=== PATIENT | female | born 1970 | race Caucasian/White ===

== ENCOUNTER → 2017-01-12 | Outpatient (CLI) | payer OTHER ==
--- NOTE | 2017-01-13 07:45 | MM ---
Reason for exam: screening (asymptomatic). Last mammogram was performed 1 year and 1 month ago. History: Patient is postmenopausal. Took hormonal contraceptives for 4 years 6 months. Took estrogen for 2 years beginning at age 29. Physical Findings: A clinical breast exam by your physician is recommended on an annual basis and results should be correlated with mammographic findings. MG Screening Mammo w CAD Bilateral CC and MLO view(s) were taken. Prior study comparison: December 28, 2015, bilateral MG 3d screening mammo w/cad. December 26, 2014, bilateral MG screening mammo w CAD. The breast tissue is almost entirely fat. Finding: There is a 7.7 mm oval mass in the axilla position consistent with a lymph node. ASSESSMENT: Benign, BI-RAD 2 RECOMMENDATION: Routine screening mammogram of both breasts in 1 year.
== END | disposition home or self-care (01) ==
LOC: RADMAMWWP 06:51
PROVIDERS: ATTEND Internal Medicine
DX: Z12.31 Encounter for screening mammogram for malignant neoplasm of breast (principal)

== ENCOUNTER → 2017-07-24 | Outpatient (CLI) | payer OTHER ==
--- NOTE | 2017-07-24 23:46 | MR ---
EXAMINATION TYPE: MR lumbar spine wo con DATE OF EXAM: 07/24/2017 COMPARISON: 05/30/2014 HISTORY: Back pain TECHNIQUE: Multiplanar, multisequence images of the lumbar spine were acquired. The lumbar vertebra have normal alignment. Posterior elements are intact. Disc spaces are normal. The neural foramina are widely patent. Lumbar nerve roots appear normal. There is no spinal stenosis. I see no bony destructive process. There is no paraspinal mass. Sacroiliac joints appear normal. There is a small posterior disc bulge and herniation at L1-2 without compromise of the spinal canal. IMPRESSION: Small posterior disc herniation at L1-2 of doubtful significance. Otherwise negative exam.
== END | disposition home or self-care (01) ==
LOC: RADMRIMAIN 20:19
PROVIDERS: ATTEND Internal Medicine
DX: M51.26 Other intervertebral disc displacement, lumbar region (principal)
CPT/HCPCS: 72148

== ENCOUNTER → 2018-04-17 | Outpatient (CLI) | payer BC, OTHER ==
--- NOTE | 2018-04-17 23:16 | CT ---
EXAMINATION TYPE: CT wrist LT wo con DATE OF EXAM: 04/17/2018 COMPARISON: None HISTORY: Left wrist pain after fall x2 weeks ago. CT DLP: 238 mGycm Automated exposure control for dose reduction was used. Helical imaging through the left wrist, sagit dg coronal reconstructions, three-dimensional reconstructions on an alternate workstation FINDINGS: There is a small ossific fragment at the volar aspect of the wrist measuring 3 mm in the soft tissues . No evident dislocation. Soft tissue swelling is suspected. Alignment is normal. Bone mineralization within normal limits. Geode present within the hamate. IMPRESSION: SMALL CHIP FRACTURE SUSPECTED THE VOLAR ASPECT OF THE WRIST, MRI MAY BE OF BENEFIT
== END ==
LOC: RADCTMAIN 17:56
DX: S62.115A Nondisplaced fracture of triquetrum [cuneiform] bone, left wrist, initial encounter for closed fracture (principal); G56.02 Carpal tunnel syndrome, left upper limb; G56.22 Lesion of ulnar nerve, left upper limb

== ENCOUNTER 2018-11-04 12:59 | Inpatient (IN) | payer BC, OTHER ==
[2018-11-04] MEDS ORDERED: PANTOPRAZOLE 40 MG/10 ML VIAL IVP STA (13:11)
[2018-11-04] MEDS ORDERED: SODIUM CHLORIDE 0.9% 1,000 ML IV STA (13:11)
[2018-11-04] MEDS ORDERED: ONDANSETRON 4 MG/2 ML VIAL IVP STA (13:11)
--- NOTE | 2018-11-04 13:19 | ED ---
GI Bleed HPI - General Chief complaint: GI Bleed Stated complaint: GI bleed Time Seen by Provider: 11/04/18 13:11 Source: patient, RN notes reviewed, old records reviewed Mode of arrival: ambulatory Limitations: no limitations - History of Present Illness Initial comments: This is a 48-year-old female the ER for evaluation of blood in her stool. Gross blood. No blood thinners currently. She also is complaining of abdominal pain. MD complaint: blood on toilet paper, blood streaked stool, gross hematochezia -: hour(s) Radiation: none Severity scale (1-10): 4 Quality: cramping, dull, constant Consistency: intermittent Improves with: none Worsens with: none Associated Symptoms: weakness Treatments Prior to Arrival: none - Related Data Home Medications Medication Instructions Recorded Confirmed Aspirin EC [Ecotrin] 325 mg PO DAILY 02/03/15 11/04/18 Atorvastatin [Lipitor] 40 mg PO DAILY 02/03/15 11/04/18 glipiZIDE [Glucotrol] 10 mg PO AC-BID 02/03/15 11/04/18 metFORMIN HCL [Glucophage] 1,000 mg PO AC-BID 02/03/15 11/04/18 Diltiazem Cd [Cardizem CD] 240 mg PO DAILY 10/22/15 11/04/18 Pantoprazole [Protonix] 40 mg PO DAILY 10/22/15 11/04/18 Cyclobenzaprine [Flexeril] 10 mg PO Q8H PRN 05/13/17 11/04/18 HYDROcodone/APAP 5-325MG [[place] 1 tab PO Q12H PRN 05/13/17 11/04/18 5-325] Lisinopril [Prinivil] 20 mg PO BID 05/13/17 11/04/18 Naproxen [Naprosyn] 500 mg PO BID 05/13/17 11/04/18 hydrALAZINE HCL 25 mg PO BID 05/13/17 11/04/18 Allergies Allergy/AdvReac Type Severity Reaction Status Date / Time morphine Allergy Rash/Hives Verified 11/04/18 16:43 Review of Systems ROS Statement: Those systems with pertinent positive or pertinent negative responses have been documented in the HPI. ROS Other: All systems not noted in ROS Statement are negative. Past Medical History Past Medical History: Chest Pain / Angina, Diabetes Mellitus, GERD/Reflux, Hyperlipidemia, Hypertension, Osteoarthritis (OA) Additional Past Medical History / Comment(s): NIDDM, bronchitis, bilateral ankle fxs, R wrist fx, arthiritis in feet, knees and hands. History of Any Multi-Drug Resistant Organisms: None Reported Date of last positivie culture/infection: 2013 MDRO Source:: R leg Past Surgical History: Appendectomy, Heart Catheterization, Hysterectomy, Orthopedic Surgery Additional Past Surgical History / Comment(s): 2009? cardiac cath-clear, L shoulder acromioplasty excision distal end of clavicle, 3 C-Sections, R knee arthroscopy, bilateral salpingectomy, bilateral oophorectomy, benign mass removed from R foot, R ankle surgery to clean out arthiritis. EGD Past Anesthesia/Blood Transfusion Reactions: No Reported Reaction Past Psychological History: No Psychological Hx Reported Smoking Status: Current every day smoker Past Alcohol Use History: None Reported Past Drug Use History: None Reported - Past Family History Father Family Medical History: Coronary Artery Disease (CAD), Diabetes Mellitus, Hyperlipidemia, Myocardial Infarction ([place]) Additional Family Medical History / Comment(s): Father has had quad and triple coronary bypasses. He is about 66 yrs old. Mother Family Medical History: Hypertension Additional Family Medical History / Comment(s): Mother recently had bowel rese ction surgery due to benign polyps/diverticulitis. She is about 66 yrs old. General Exam Limitations: no limitations General appearance: alert, in no apparent distress Head exam: Present: atraumatic, normocephalic, normal inspection Eye exam: Present: normal appearance, PERRL, EOMI. Absent: scleral icterus, conjunctival injection, periorbital swelling ENT exam: Present: normal exam, mucous membranes moist Neck exam: Present: normal inspection. Absent: tenderness, meningismus, lymphadenopathy Respiratory exam: Present: normal lung sounds bilaterally. Absent: respiratory distress, wheezes, rales, rhonchi, stridor Cardiovascular Exam: Present: normal rhythm, tachycardia, normal heart sounds. Absent: systolic murmur, diastolic murmur, rubs, gallop, clicks GI/Abdominal exam: Present: soft, normal bowel sounds. Absent: distended, tenderness, guarding, rebound, rigid Extremities exam: Present: normal inspection, full ROM, normal capillary refill. Absent: tenderness, pedal edema, joint swelling, calf tenderness Back exam: Present: normal inspection Neurological exam: Present: alert, oriented X3, CN II-XII intact Psychiatric exam: Present: normal affect, normal mood Skin exam: Present: warm, dry, intact, normal color. Absent: rash Course Vital Signs 11/04/18 11/04/18 11/04/18 13:07 15:32 16:38 Temperature 98.9 F 97.2 F L 97.9 F Pulse Rate 112 H 109 H 86 Respiratory 18 16 16 Rate Blood Pressure 181/81 181/92 166/79 O2 Sat by Pulse 97 97 98 Oximetry - Reevaluation(s) Reevaluation #1: 11/04/18 14:22 medical record is reviewed Medical Decision Making - Medical Decision Making Current female the ER with history of bleed. Patient is colitis likely colitis causing GI bleed. Patient will be admitted for monitoring of hemoglobin - Lab Data Result diagrams: 11/06/18 07:24 11/06/18 07:24 Lab Results 11/04/18 11/04/18 11/04/18 Range/Units 13:42 13:42 13:42 WBC 18.3 H (3.8-10.6) k/uL RBC 4.77 (3.80-5.40) m/uL Hgb 13.3 (11.4-16.0) gm/dL Hct 41.0 (34.0-46.0) % MCV 86.0 (80.0-100.0) fL MCH 27.8 (25.0-35.0) pg MCHC 32.3 (31.0-37.0) g/dL RDW 14.5 (11.5-15.5) % Plt Count 408 (150-450) k/uL Neutrophils % 82 % Lymphocytes % 10 % Monocytes % 5 % Eosinophils % 1 % Basophils % 0 % Neutrophils # 15.1 H (1.3-7.7) k/uL Lymphocytes # 1.8 (1.0-4.8) k/uL Monocytes # 1.0 (0-1.0) k/uL Eosinophils # 0.2 (0-0.7) k/uL Basophils # 0.0 (0-0.2) k/uL PT 9.8 (9.0-12.0) sec INR 0.9 (<1.2) APTT 23.6 (22.0-30.0) sec Sodium 139 (137-145) mmol/L Potassium 4.4 (3.5-5.1) mmol/L Chloride 105 (98-107) mmol/L Carbon Dioxide 23 (22-30) mmol/L Anion Gap 11 mmol/L BUN 15 (7-17) mg/dL Creatinine 0.62 (0.52-1.04) mg/dL Est GFR (CKD-EPI)AfAm >90 (>60 ml/min/1.73 sqM) Est GFR (CKD-EPI)NonAf >90 (>60 ml/min/1.73 sqM) Glucose 151 H (74-99) mg/dL POC Glucose (mg/dL) (75-99) mg/dL POC Glu Air Drier ID Estimated Ave Glu mg/dL Hemoglobin A1c (4.0-6.0) % Calcium 9.6 (8.4-10.2) mg/dL Magnesium 1.7 (1.6-2.3) mg/dL Total Bilirubin 0.6 (0.2-1.3) mg/dL AST 29 (14-36) U/L ALT 39 (9-52) U/L Alkaline Phosphatase 99 (38-126) U/L Troponin I (0.000-0.034) ng/mL Total Protein 6.9 (6.3-8.2) g/dL Albumin 4.3 (3.5-5.0) g/dL Lipase 17 L (23-300) U/L Stool Occult Blood (Negative) 11/04/18 11/04/18 11/04/18 Range/Units 13:42 17:36 20:58 WBC (3.8-10.6) k/uL RBC (3.80-5.40) m/uL Hgb (11.4-16.0) gm/dL Hct (34.0-46.0) % MCV (80.0-100.0) fL MCH (25.0-35.0) pg MCHC (31.0-37.0) g/dL RDW (11.5-15.5) % Plt Count (150-450) k/uL Neutrophils % % Lymphocytes % % Monocytes % % Eosinophils % % Basophils % % Neutrophils # (1.3-7.7) k/uL Lymphocytes # (1.0-4.8) k/uL Monocytes # (0-1.0) k/uL Eosinophils # (0-0.7) k/uL Basophils # (0-0.2) k/uL PT (9.0-12.0) sec INR (<1.2) APTT (22.0-30.0) sec Sodium (137-145) mmol/L Potassium (3.5-5.1) mmol/L Chloride (98-107) mmol/L Carbon Dioxide (22-30) mmol/L Anion Gap mmol/L BUN (7-17) mg/dL Creatinine (0.52-1.04) mg/dL Est GFR (CKD-EPI)AfAm (>60 ml/min/1.73 sqM) Est GFR (CKD-EPI)NonAf (>60 ml/min/1.73 sqM) Glucose (74-99) mg/dL POC Glucose (mg/dL) 142 H 145 H (75-99) mg/dL POC Glu Air Drier ID Ro, Rosalinda Connolly Estimated [address] Glu mg/dL Hemoglobin A1c (4.0-6.0) % Calcium (8.4-10.2) mg/dL Magnesium (1.6-2.3) mg/dL Total Bilirubin (0.2-1.3) mg/dL AST (14-36) U/L ALT (9-52) U/L Alkaline Phosphatase (38-126) U/L Troponin I <0.012 (0.000-0.034) ng/mL Total Protein (6.3-8.2) g/dL Albumin (3.5-5.0) g/dL Lipase (23-300) U/L Stool Occult Blood (Negative) 11/05/18 11/05/18 11/05/18 Range/Units 06:30 07:05 07:15 WBC 11.6 H (3.8-10.6) k/uL RBC 4.43 (3.80-5.40) m/uL Hgb 12.4 (11.4-16.0) gm/dL Hct 39.0 (34.0-46.0) % MCV 87.9 (80.0-100.0) fL MCH 27.9 (25.0-35.0) pg MCHC 31.7 (31.0-37.0) g/dL RDW 14.3 (11.5-15.5) % Plt Count 291 (150-450) k/uL Neutrophils % 70 % Lymphocytes % 20 % Monocytes % 6 % Eosinophils % 2 % Basophils % 0 % Neutrophils # 8.1 H (1.3-7.7) k/uL Lymphocytes # 2.3 (1.0-4.8) k/uL Monocytes # 0.7 (0-1.0) k/uL Eosinophils # 0.2 (0-0.7) k/uL Basophils # 0.0 (0-0.2) k/uL PT (9.0-12.0) sec INR (<1.2) APTT (22.0-30.0) sec Sodium (137-145) mmol/L Potassium (3.5-5.1) mmol/L Chloride (98-107) mmol/L Carbon Dioxide (22-30) mmol/L Anion Gap mmol/L BUN (7-17) mg/dL Creatinine (0.52-1.04) mg/dL Est GFR (CKD-EPI)AfAm (>60 ml/min/1.73 sqM) Est GFR (CKD-EPI)NonAf (>60 ml/min/1.73 sqM) Glucose (74-99) mg/dL POC Glucose (mg/dL) 153 H (75-99) mg/dL POC Glu Air Drier ID Sia Turner Estimated [address] Glu mg/dL Hemoglobin A1c (4.0-6.0) % Calcium (8.4-10.2) mg/dL Magnesium (1.6-2.3) mg/dL Total Bilirubin (0.2-1.3) mg/dL AST (14-36) U/L ALT (9-52) U/L Alkaline Phosphatase (38-126) U/L Troponin I (0.000-0.034) ng/mL Total Protein (6.3-8.2) g/dL Albumin (3.5-5.0) g/dL Lipase (23-300) U/L Stool Occult Blood Positive H (Negative) 11/05/18 11/05/18 11/05/18 Range/Units 07:15 07:45 11:46 WBC (3.8-10.6) k/uL RBC (3.80-5.40) m/uL Hgb (11.4-16.0) gm/dL Hct (34.0-46.0) % MCV (80.0-100.0) fL MCH (25.0-35.0) pg MCHC (31.0-37.0) g/dL RDW (11.5-15.5) % Plt Count (150-450) k/uL Neutrophils % % Lymphocytes % % Monocytes % % Eosinophils % % Basophils % % Neutrophils # (1.3-7.7) k/uL Lymphocytes # (1.0-4.8) k/uL Monocytes # (0-1.0) k/uL Eosinophils # (0-0.7) k/uL Basophils # (0-0.2) k/uL PT (9.0-12.0) sec INR (<1.2) APTT (22.0-30.0) sec Sodium 140 (137-145) mmol/L Potassium 4.4 (3.5-5.1) mmol/L Chloride 107 (98-107) mmol/L Carbon Dioxide 28 (22-30) mmol/L Anion Gap 5 mmol/L BUN 7 (7-17) mg/dL Creatinine 0.56 (0.52-1.04) mg/dL Est GFR (CKD-EPI)AfAm >90 (>60 ml/min/1.73 sqM) Est GFR (CKD-EPI)NonAf >90 (>60 ml/min/1.73 sqM) Glucose 142 H (74-99) mg/dL POC Glucose (mg/dL) 115 H (75-99) mg/dL POC Glu Air Drier ID Johnny Sia Estimated [address] Glu mg/dL 137 Hemoglobin A1c 6.4 H (4.0-6.0) % Calcium 9.2 (8.4-10.2) mg/dL Magnesium (1.6-2.3) mg/dL Total Bilirubin 0.7 (0.2-1.3) mg/dL AST 22 (14-36) U/L ALT 41 (9-52) U/L Alkaline Phosphatase 72 (38-126) U/L Troponin I (0.000-0.034) ng/mL Total Protein 6.1 L (6.3-8.2) g/dL Albumin 3.7 (3.5-5.0) g/dL Lipase (23-300) U/L Stool Occult Blood (Negative) 11/05/18 11/05/18 11/05/18 Range/Units 15:42 16:38 21:37 WBC 11.3 H (3.8-10.6) k/uL RBC 4.20 (3.80-5.40) m/uL Hgb 12.0 (11.4-16.0) gm/dL Hct 36.9 (34.0-46.0) % MCV 87.8 (80.0-100.0) fL MCH 28.5 (25.0-35.0) pg MCHC 32.5 (31.0-37.0) g/dL RDW 14.3 (11.5-15.5) % Plt Count 291 (150-450) k/uL Neutrophils % 63 % Lymphocytes % 27 % Monocytes % 6 % Eosinophils % 2 % Basophils % 0 % Neutrophils # 7.2 (1.3-7.7) k/uL Lymphocytes # 3.0 (1.0-4.8) k/uL Monocytes # 0.7 (0-1.0) k/uL Eosinophils # 0.2 (0-0.7) k/uL Basophils # 0.0 (0-0.2) k/uL PT (9.0-12.0) sec INR (<1.2) APTT (22.0-30.0) sec Sodium (137-145) mmol/L Potassium (3.5-5.1) mmol/L Chloride (98-107) mmol/L Carbon Dioxide (22-30) mmol/L Anion Gap mmol/L BUN (7-17) mg/dL Creatinine (0.52-1.04) mg/dL Est GFR (CKD-EPI)AfAm (>60 ml/min/1.73 sqM) Est GFR (CKD-EPI)NonAf (>60 ml/min/1.73 sqM) Glucose (74-99) mg/dL POC Glucose (mg/dL) 129 H 135 H (75-99) mg/dL POC Glu Air Drier Sia Jeffers Karen [address]imated [address] Glu mg/dL Hemoglobin A1c (4.0-6.0) % Calcium (8.4-10.2) mg/dL Magnesium (1.6-2.3) mg/dL Total Bilirubin (0.2-1.3) mg/dL AST (14-36) U/L ALT (9-52) U/L Alkaline Phosphatase (38-126) U/L Troponin I (0.000-0.034) ng/mL Total Protein (6.3-8.2) g/dL Albumin (3.5-5.0) g/dL Lipase (23-300) U/L Stool Occult Blood (Negative) 11/05/18 Range/Units 22:48 WBC 10.4 (3.8-10.6) k/uL RBC 4.10 (3.80-5.40) m/uL Hgb 11.7 (11.4-16.0) gm/dL Hct 35.9 (34.0-46.0) % MCV 87.5 (80.0-100.0) fL MCH 28.6 (25.0-35.0) pg MCHC 32.7 (31.0-37.0) g/dL RDW 14.4 (11.5-15.5) % Plt Count 297 (150-450) k/uL Neutrophils % 61 % Lymphocytes % 27 % Monocytes % 6 % Eosinophils % 3 % Basophils % 1 % Neutrophils # 6.4 (1.3-7.7) k/uL Lymphocytes # 2.8 (1.0-4.8) k/uL Monocytes # 0.7 (0-1.0) k/uL Eosinophils # 0.3 (0-0.7) k/uL Basophils # 0.1 (0-0.2) k/uL PT (9.0-12.0) sec INR (<1.2) APTT (22.0-30.0) sec Sodium (137-145) mmol/L Potassium (3.5-5.1) mmol/L Chloride (98-107) mmol/L Carbon Dioxide (22-30) mmol/L Anion Gap mmol/L BUN (7-17) mg/dL Creatinine (0.52-1.04) mg/dL Est GFR (CKD-EPI)AfAm (>60 ml/min/1.73 sqM) Est GFR (CKD-EPI)NonAf (>60 ml/min/1.73 sqM) Glucose (74-99) mg/dL POC Glucose (mg/dL) (75-99) mg/dL POC Glu Air Drier ID Estimated Ave Glu mg/dL Hemoglobin A1c (4.0-6.0) % Calcium (8.4-10.2) mg/dL Magnesium (1.6-2.3) mg/dL Total Bilirubin (0.2-1.3) mg/dL AST (14-36) U/L ALT (9-52) U/L Alkaline Phosphatase (38-126) U/L Troponin I (0.000-0.034) ng/mL Total Protein (6.3-8.2) g/dL Albumin (3.5-5.0) g/dL Lipase (23-300) U/L Stool Occult Blood (Negative) - Radiology Data Radiology results: report reviewed (CT of abdomen pelvis positive for colitis), image reviewed Disposition Clinical Impression: GIB (gastrointestinal bleeding), Colitis Disposition: ADMITTED IP TO THIS [facility] Condition: Fair Is patient prescribed a controlled substance at d/c from ED?: No
[2018-11-04 14:14] LABS: Basophils % (A) 0 %; Eosinophils # (A) 0.2 k/uL (0-0.7); Eosinophils % (A) 1 %; HGB 13.3 gm/dL (11.4-16.0); Lymphocytes # (A) 1.8 k/uL (1.0-4.8); Lymphocytes % (A) 10 %; MCH 27.8 pg (25.0-35.0); MCHC 32.3 g/dL (31.0-37.0); Mean Platelet Volume 9.3; Monocytes % (A) 5 %; Neutrophils # (A) 15.1 k/uL (1.3-7.7); Neutrophils % (A) 82 %; Platelet Count 408 k/uL (150-450); RBC 4.77 m/uL (3.80-5.40); RDW 14.5 % (11.5-15.5); WBC 18.3 k/uL (3.8-10.6)
[2018-11-04 14:16] LABS: INR 0.9 (<1.2); Partial Thromboplastin Time 23.6 sec (22.0-30.0); Prothrombin Time 9.8 sec (9.0-12.0)
[2018-11-04 14:19] LABS: ALT 39 U/L (9-52); AST 29 U/L (14-36); Albumin 4.3 g/dL (3.5-5.0); Alkaline Phosphatase 99 U/L (38-126); Anion Gap 11 mmol/L; Blood Urea Nitrogen 15 mg/dL (7-17); Calcium 9.6 mg/dL (8.4-10.2); Carbon Dioxide 23 mmol/L (22-30); Chloride 105 mmol/L (98-107); Glucose 151 mg/dL (74-99); Lipase 17 U/L (23-300); Magnesium 1.7 mg/dL (1.6-2.3); Potassium 4.4 mmol/L (3.5-5.1); Sodium 139 mmol/L (137-145); Total Bilirubin 0.6 mg/dL (0.2-1.3); Total Protein 6.9 g/dL (6.3-8.2)
--- NOTE | 2018-11-04 15:11 | CT ---
EXAMINATION TYPE: CT abdomen pelvis w con DATE OF EXAM: 11/04/2018 COMPARISON: None HISTORY: BLOOD IN STOOL CT DLP: 2058.7 mGycm Automated exposure control for dose reduction was used. TECHNIQUE: Helical acquisition of images was performed from the lung bases through the pelvis. CONTRAST: Performed without Oral Contrast and with IV Contrast, patient injected with 100 mL of Isovue 300. FINDINGS: Lung bases are clear. There is no pleural effusion. Heart size is normal. There is no pericardial eff usion. Stomach appears normal. Liver spleen pancreas gallbladder appear normal. Bile ducts are not dilated. There is no evidence of pancreatic mass. There is no adrenal mass. Kidneys show satisfactory contrast opacification. There is no hydronephrosis. There is no retroperitoneal adenopathy. Ureters are not d ilated. There is fat stranding and wall thickening involving the splenic flexure of the colon and descending colon. This extends into the sigmoid colon. Bladder distends smoothly. There is no inguinal hernia. There is no free fluid in the pelvis. There i s no ascites. Appendix is not definitely seen. There is no sign of a thickened appendix. There is no free air. There is no ascites. There is tiny amount of fluid in the left paracolic gutter. The bony structures are intact. Lumbar spine is intact. IMPRESSION: INFLAMMATORY CHANGES OF THE LEFT COLON AND PROXIMAL SIGMOID COLON CONSISTENT WITH COLITIS.
[2018-11-04] MEDS ORDERED: SODIUM CHLORIDE 0.9% 1,000 ML IV ONE (16:39)
[2018-11-04] MEDS ORDERED: ONDANSETRON 4 MG/2 ML VIAL IVP PRN (16:39)
[2018-11-04] MEDS ORDERED: AMPICILLIN-SULBACTAM 3 GM in SODIUM CHLORIDE 0.9% 100 ML IVPB STA (16:39)
[2018-11-04] MEDS ORDERED: HYDROmorphone 1 MG/ML 1 ML SYRINGE IVP STA (16:42)
[2018-11-04 17:47] LABS: Glucose,Whole Blood 142 mg/dL (75-99)
[2018-11-04 17:59] VITALS: BMI 43.7
[2018-11-04] MEDS ORDERED: CYCLOBENZAPRINE 10 MG TAB PO PRN (18:18)
[2018-11-04] MEDS ORDERED: LISINOPRIL 20 MG TAB PO SCH (18:19)
[2018-11-04] MEDS ORDERED: hydrALAZINE HCL 25 MG TAB PO SCH (18:30)
[2018-11-04] MEDS ORDERED: ACETAMINOPHEN TAB 500 MG TAB PO PRN (18:38)
[2018-11-04] MEDS: ATORVASTATIN 40 MG TAB PO SCH (18:39)
[2018-11-04] MEDS: LISINOPRIL 20 MG TAB PO SCH (18:40)
[2018-11-04] MEDS: INSULIN ASPART (NovoLOG) 100 UNIT/ML VIAL SQ SCH ×2 (18:41→22:46)
[2018-11-04 21:00] LABS: Glucose,Whole Blood 145 mg/dL (75-99)
[2018-11-04] MEDS: DILTIAZEM CD 240 MG CAP.ER.24H PO SCH (21:37)
[2018-11-04] MEDS: HYDROmorphone 1 MG/ML 1 ML SYRINGE IVP PRN (21:46)
[2018-11-05] MEDS: AMPICILLIN-SULBACTAM 3 GM in SODIUM CHLORIDE 0.9% 100 ML IVPB SCH ×4 (00:27→18:54)
[2018-11-05] MEDS: hydrALAZINE HCL 25 MG TAB PO SCH ×3 (00:33→22:38)
[2018-11-05 07:29] LABS: Glucose,Whole Blood 153 mg/dL (75-99)
[2018-11-05] MEDS: INSULIN ASPART (NovoLOG) 100 UNIT/ML VIAL SQ SCH ×4 (07:46→22:39)
[2018-11-05] MEDS: PANTOPRAZOLE 40 MG/10 ML VIAL IVP SCH (07:57)
[2018-11-05] MEDS: DILTIAZEM CD 240 MG CAP.ER.24H PO SCH (07:58)
[2018-11-05] MEDS: LISINOPRIL 20 MG TAB PO SCH ×2 (07:58→22:39)
[2018-11-05] MEDS: HYDROmorphone 1 MG/ML 1 ML SYRINGE IVP PRN ×2 (07:58→22:43)
[2018-11-05] MEDS: ATORVASTATIN 40 MG TAB PO SCH (07:58)
[2018-11-05 08:00] LABS: Basophils % (A) 0 %; Eosinophils # (A) 0.2 k/uL (0-0.7); Eosinophils % (A) 2 %; HGB 12.4 gm/dL (11.4-16.0); Lymphocytes # (A) 2.3 k/uL (1.0-4.8); Lymphocytes % (A) 20 %; MCH 27.9 pg (25.0-35.0); MCHC 31.7 g/dL (31.0-37.0); MCV 87.9 fL (80.0-100.0); Mean Platelet Volume 8.8; Monocytes # (A) 0.7 k/uL (0-1.0); Monocytes % (A) 6 %; Neutrophils # (A) 8.1 k/uL (1.3-7.7); Neutrophils % (A) 70 %; Platelet Count 291 k/uL (150-450); RBC 4.43 m/uL (3.80-5.40); RDW 14.3 % (11.5-15.5); WBC 11.6 k/uL (3.8-10.6)
[2018-11-05 08:59] LABS: ALT 41 U/L (9-52); AST 22 U/L (14-36); Albumin 3.7 g/dL (3.5-5.0); Alkaline Phosphatase 72 U/L (38-126); Anion Gap 5 mmol/L; Blood Urea Nitrogen 7 mg/dL (7-17); Calcium 9.2 mg/dL (8.4-10.2); Carbon Dioxide 28 mmol/L (22-30); Chloride 107 mmol/L (98-107); Glucose 142 mg/dL (74-99); Potassium 4.4 mmol/L (3.5-5.1); Sodium 140 mmol/L (137-145); Total Bilirubin 0.7 mg/dL (0.2-1.3); Total Protein 6.1 g/dL (6.3-8.2)
--- NOTE | 2018-11-05 10:19 | P.HPIM ---
History of Present Illness H&P Date: 11/05/18 This is a 48-year-old female patient presented with complaints of GI bleed and abdominal pain. She reports that symptoms started 2 days ago when she was nauseated and vomited and then developed diarrhea where she noticed blood in her stool. Patient is also complaining of lower abdominal pain. Patient does have a past medical history of chest pain, diabetes mellitus, GERD, hyperlipidemia, hypertension, osteoarthritis previous cardiac cath- negative. Abdominal pelvic CT completed showing inflammatory changes left colon and proximal sigmoid colon consistent with colitis. Hemoccult positive for blood. GI service is consulted. Patient currently nothing by mouth. Patient started on Unasyn. Hemoglobin 12.4. At this time patient is still complaining of mild abdominal pain well controlled with IV pain medication. Patient denies any nausea or vomiting. Patient does report stool with bright red blood this a.m. Patient denies clots seen. Will order hemoglobin recheck at noon and 1800. This time patient denies chest pain or shortness breath. Patient denies any nausea vomiting. Patient denies any urinary burning or frequency Review of Systems Please refer to HPI otherwise unremarkable Past Medical History Past Medical History: Chest Pain / Angina, Diabetes Mellitus, GERD/Reflux, Hyperlipidemia, Hypertension, Osteoarthritis ([place]) Additional Past Medical History / Comment(s): bronchitis, bilateral ankle fxs, R wrist fx, arthiritis in feet, knees and hands. History of Any Multi-Drug Resistant Organisms: None Reported Date of last positivie culture/infection: 2013 MDRO Source:: R leg Past Surgical History: Appendectomy, Heart Catheterization, Hysterectomy, Orthopedic Surgery Additional Past Surgical History / Comment(s): 2009? cardiac cath-clear, L shoul harshad acromioplasty excision distal end of clavicle, 3 C-Sections, R knee arthroscopy, bilateral salpingectomy, bilateral oophorectomy, benign mass removed from R foot, R ankle surgery to clean out arthiritis. EGD Past Anesthesia/Blood Transfusion Reactions: No Reported Reaction Past Psychological History: No Psychological Hx Reported Additional Psychological History / Comment(s): Pt's adult son and corky live with her along with 2 grandchildren. She is independent. She uses no assistive device or home care agency. She drives a car. Smoking Status: Former smoker Past Alcohol Use History: None Reported Additional Past Alcohol Use History / Comment(s): Pt started smoking in 1982 and was alittle under a ppd smoker. She quit 10/2018 Past Drug Use History: None Reported - Past Family History Father Family Medical History: Coronary Artery Disease (CAD), Diabetes Mellitus, Hyperlipidemia, Myocardial Infarction ([place]) Additional Family Medical History / Comment(s): Father has had quad and triple coronary bypasses. He is about 66 yrs old. Mother Family Medical History: Hypertension Additional Family Medical History / Comment(s): Mother recently had bowel resection surgery due to benign polyps/diverticulitis. She is about 66 yrs old. Medications and Allergies Home Medications Medication Instructions Recorded Confirmed Type Aspirin EC [Ecotrin] 325 mg PO DAILY 02/03/15 11/04/18 History Atorvastatin [Lipitor] 40 mg PO DAILY 02/03/15 11/04/18 History glipiZIDE [Glucotrol] 10 mg PO AC-BID 02/03/15 11/04/18 History metFORMIN HCL [Glucophage] 1,000 mg PO AC-BID 02/03/15 11/04/18 History Diltiazem Cd [Cardizem CD] 240 mg PO DAILY 10/22/15 11/04/18 History Pantoprazole [Protonix] 40 mg PO DAILY 10/22/15 11/04/18 History Cyclobenzaprine [Flexeril] 10 mg PO Q8H PRN 05/13/17 11/04/18 History HYDROcodone/APAP 5-325MG [[place] 1 tab PO Q12H PRN 05/13/17 11/04/18 History 5-325] Lisinopril [Prinivil] 20 mg PO BID 05/13/17 11/04/18 History Naproxen [Naprosyn] 500 mg PO BID 05/13/17 11/04/18 History hydrALAZINE HCL 25 mg PO BID 05/13/17 11/04/18 History Allergies Allergy/AdvReac Type Severity Reaction Status Date / Time morphine Allergy Rash/Hives Verified 11/04/18 16:43 Physical Exam Vitals: Vital Signs Temp Pulse Pulse Resp BP BP Pulse Ox 11/05/18 07:00 98.4 F 95 12 152/84 95 11/05/18 00:22 98.4 F 98 15 143/82 96 11/05/18 00:00 16 11/04/18 21:39 157/81 11/04/18 19:35 98.7 F 103 H 16 143/84 95 11/04/18 18:05 177/86 11/04/18 17:30 98.4 F 111 H 16 195/93 94 L 11/04/18 17:15 98 F 11/04/18 16:38 97.9 F 86 16 166/79 98 11/04/18 15:32 97.2 F L 109 H 16 181/92 97 11/04/18 13:07 98.9 F 112 H 18 181/81 97 Intake and Output 11/04/18 11/05/18 11/05/18 22:59 06:59 14:59 Output Total 300 25 Balance -300 -25 Output: Stool 300 25 Other: Voiding Method Toilet Toilet Head normocephalic Neck supple Lungs clear to auscultation bilaterally no wheezing or crackles Heart regular rate and rhythm S1-S2, no rub or gallop Abdomen lower abdominal tenderness to palpation. Extremities no edema Neuro alert and orientated to 3 Results CBC & Chem 7: 11/05/18 07:15 11/05/18 07:15 Labs: Abnormal Lab Results - Last 24 Hours (Table) 11/04/18 11/04/18 11/04/18 Range/Units 13:42 13:42 17:36 WBC 18.3 H (3.8-10.6) k/uL Neutrophils # 15.1 H (1.3-7.7) k/uL Glucose 151 H (74-99) mg/dL POC Glucose (mg/dL) 142 H (75-99) mg/dL Total Protein (6.3-8.2) g/dL Lipase 17 L (23-300) U/L Stool Occult Blood (Negative) 11/04/18 11/05/18 11/05/18 Range/Units 20:58 06:30 07:05 WBC (3.8-10.6) k/uL Neutrophils # (1.3-7.7) k/uL Glucose (74-99) mg/dL POC Glucose (mg/dL) 145 H 153 H (75-99) mg/dL Total Protein (6.3-8.2) g/dL Lipase (23-300) U/L Stool Occult Blood Positive H (Negative) 11/05/18 11/05/18 Range/Units 07:15 07:15 WBC 11.6 H (3.8-10.6) k/uL Neutrophils # 8.1 H (1.3-7.7) k/uL Glucose 142 H (74-99) mg/dL POC Glucose (mg/dL) (75-99) mg/dL Total Protein 6.1 L (6.3-8.2) g/dL Lipase (23-300) U/L Stool Occult Blood (Negative) Thrombosis Risk Factor Assmnt - Choose All That Apply Any of the Below Risk Factors Present?: Yes Each Factor Represents 1 point: Age 41-60 years Other Risk Factors: Yes Each Risk Factor Represents 3 Points: Family history of DVT/PE Other congenital or acquired thrombophilia - If yes, enter type in comment: No Thrombosis Risk Factor Assessment Total Risk Factor Score: 4 Thrombosis Risk Factor Assessment Level: Moderate Risk Assessment and Plan Assessment: 1. Abdominal pain with GI bleed and colitis. Inflammatory changes of the left colon and proximal sigmoid colon cystoscopy with colitis. Hemoccult positive. Hemoglobin stable 12.4. GI service consulted. Patient currently nothing by mouth. Patient started on Unasyn for IV antibiotic. Serial hemoglobin checks ordered. Continue IV Protonix 2. History of essential hypertension 3. Diabetes mellitus type 2. Sliding scale insulin ordered 4. History of hyperlipidemia 5. History of osteoarthritis DVT prophylaxis SCDs due to GI bleed. GI prophylaxis Protonix Time with Patient: Greater than 30 (I performed an examination of the patient and discussed their management with the Nurse Practitioner. I have reviewed the Nurse Practitioner's notes and agree with the documented findings and plan of care. Greater than 60% of the total time spent in counseling and coordination of care)
[2018-11-05 12:04] LABS: Glucose,Whole Blood 115 mg/dL (75-99)
[2018-11-05 15:13] LABS: Hemoglobin A1C 6.4 % (4.0-6.0)
[2018-11-05 16:21] LABS: Basophils % (A) 0 %; Eosinophils # (A) 0.2 k/uL (0-0.7); Eosinophils % (A) 2 %; HCT 36.9 % (34.0-46.0); Lymphocytes % (A) 27 %; MCH 28.5 pg (25.0-35.0); MCHC 32.5 g/dL (31.0-37.0); MCV 87.8 fL (80.0-100.0); Mean Platelet Volume 8.3; Monocytes # (A) 0.7 k/uL (0-1.0); Monocytes % (A) 6 %; Neutrophils # (A) 7.2 k/uL (1.3-7.7); Neutrophils % (A) 63 %; Platelet Count 291 k/uL (150-450); RDW 14.3 % (11.5-15.5); WBC 11.3 k/uL (3.8-10.6)
[2018-11-05 16:53] LABS: Glucose,Whole Blood 129 mg/dL (75-99)
--- NOTE | 2018-11-05 21:07 | P.CONS ---
History of Present Illness - Reason for Consult Consult date: 11/05/18 Blood per rectum Requesting physician: Kate Lester - Chief Complaint Blood per rectum - History of Present Illness 48-year-old female with a medical history significant for osteoarthritis, hypertension, dyslipidemia and diabetes mellitus who presented to the hospital with complaints of blood per rectum. The patient reports multiple episodes of bright red blood per rectum prior to presentation. She reports blood mixed with stool and in the toilet. She denies any blood thinner use. She denies any similar episodes of blood per rectum in the past. She denies any abdominal pain in association with her symptoms. However, she is currently reporting some crampy lower abdominal pain She denies any travel, sick contacts, or unusual foods or new medications prior to symptoms. The patient has not undergone EGD or colonoscopic evaluation in the past. On presentation to the hospital the patient was found to have a hemoglobin of 13.3 which subsequently was found to be 12.4. INR 0.9, total bilirubin 0.7, alkaline phosphatase 72, AST 22 and ALT 41. Stool was positive for occult blood. The patient had a computed tomography scan with inflammatory changes of the left colon and proximal sigmoid noted. Review of Systems REVIEW OF SYSTEMS: CONSTITUTIONAL: Denies any fevers, chills, weight change or fatigue. CARDIOVASCULAR: Denies any chest pain, palpitations high or low blood pressures RESPIRATORY: Denies any shortness of breath, hemoptysis or cough. GENITOURINARY: No dysuria or hematuria. MUSCULOSKELETAL: No weakness reported. SKIN: Denies any new rashes or lesions, jaundice or pallor. PSYCHIATRIC: Denies any depression or anxiety. NEUROLOGY: Denies headache, denies any new focal deficits. EARS/NOSE/THROAT: No recent hearing change, congestion, nasal discharge or sore throat. EYES: No pain in eyes, discharge or change in vision. GASTROINTESTINAL: As per HPI. Past Medical History Past Medical History: Chest Pain / Angina, Diabetes Mellitus, GERD/Reflux, Hyperlipidemia, Hypertension, Osteoarthritis (OA) Additional Past Medical History / Comment(s): bronchitis, bilateral ankle fxs, R wrist fx, arthiritis in feet, knees and hands. History of Any Multi-Drug Resistant Organisms: None Reported Year Discovered:: 2013 MDRO Source:: R leg Past Surgical History: Appendectomy, Heart Catheterization, Hysterectomy, Orthop edic Surgery Additional Past Surgical History / Comment(s): 2009? cardiac cath-clear, L shoulder acromioplasty excision distal end of clavicle, 3 C-Sections, R knee arthroscopy, bilateral salpingectomy, bilateral oophorectomy, benign mass removed from R foot, R ankle surgery to clean out arthiritis. EGD Past Anesthesia/Blood Transfusion Reactions: No Reported Reaction Past Psychological History: No Psychological Hx Reported Additional Psychological History / Comment(s): Pt's adult son and corky live with her along with 2 grandchildren. She is independent. She uses no assistive device or home care agency. She drives a car. Smoking Status: Former smoker Past Alcohol Use History: None Reported Additional Past Alcohol Use History / Comment(s): Pt started smoking in 1982 and was alittle under a ppd smoker. She quit 10/2018 Past Drug Use History: None Reported - Past Family History Father Family Medical History: Coronary Artery Disease (CAD), Diabetes Mellitus, Hyperlipidemia, Myocardial Infarction (OK) Additional Family Medical History / Comment(s): Father has had quad and triple coronary bypasses. He is about 66 yrs old. Mother Family Medical History: Hypertension Additional Family Medical History / Comment(s): Mother recently had bowel resection surgery due to benign polyps/diverticulitis. She is about 66 yrs old. Medications and Allergies Home Medications Medication Instructions Recorded Confirmed Type Aspirin EC [Ecotrin] 325 mg PO DAILY 02/03/15 11/04/18 History Atorvastatin [Lipitor] 40 mg PO DAILY 02/03/15 11/04/18 History glipiZIDE [Glucotrol] 10 mg PO AC-BID 02/03/15 11/04/18 History metFORMIN HCL [Glucophage] 1,000 mg PO AC-BID 02/03/15 11/04/18 History Diltiazem Cd [Cardizem CD] 240 mg PO DAILY 10/22/15 11/04/18 History Pantoprazole [Protonix] 40 mg PO DAILY 10/22/15 11/04/18 History Cyclobenzaprine [Flexeril] 10 mg PO Q8H PRN 05/13/17 11/04/18 History HYDROcodone/APAP 5-325MG [[place] 1 tab PO Q12H PRN 05/13/17 11/04/18 History 5-325] Lisinopril [Prinivil] 20 mg PO BID 05/13/17 11/04/18 History Naproxen [Naprosyn] 500 mg PO BID 05/13/17 11/04/18 History hydrALAZINE HCL 25 mg PO BID 05/13/17 11/04/18 History Allergies Allergy/AdvReac Type Severity Reaction Status Date / Time morphine Allergy Rash/Hives Verified 11/04/18 16:43 Physical Exam Vitals: Vital Signs Temp Pulse Resp BP Pulse Ox 11/05/18 20:52 98.8 F 77 18 160/76 96 11/05/18 14:40 98.2 F 81 12 131/76 98 11/05/18 07:00 98.4 F 95 12 152/84 95 11/05/18 00:22 98.4 F 98 15 143/82 96 11/05/18 00:00 16 11/04/18 21:39 157/81 Intake and Output 11/05/18 11/05/18 11/05/18 06:59 14:59 22:59 Intake Total 1390 500 Output Total 300 25 10 Balance -300 1365 490 Intake: Intake, IV Titration 650 Amount Sodium Chloride 0.9% 1, 650 000 ml @ 100 mls/hr IV . Q10H ONE Rx#:[id number] Oral 740 500 Output: Stool 300 25 10 Other: Voiding Method Toilet On physical examination, patient appears comfortable in no apparent distress. HEAD: Normocephalic, atraumatic. EYES: No scleral icterus. No conjunctival injection. MOUTH: No lesions, tongue midline. NECK: Trachea midline, no gross abnormalities. CHEST: Clear to auscultation with no wheezing or rhonchi appreciated. HEART: Regular rate and rhythm. ABDOMEN: Soft, obese, tender to palpation. Bowel sounds are positive. No organomegaly. No guarding or rigidity. EXTREMITIES: No pedal edema. SKIN: No rashes, no jaundice. NEUROLOGIC: Alert and oriented x3. No focal deficits. Results CBC & Chem 7: 11/05/18 15:42 11/05/18 07:15 Labs: Abnormal Lab Results - Last 24 Hours (Table) 11/04/18 11/05/18 11/05/18 Range/Units 20:58 06:30 07:05 WBC (3.8-10.6) k/uL Neutrophils # (1.3-7.7) k/uL Glucose (74-99) mg/dL POC Glucose (mg/dL) 145 H 153 H (75-99) mg/dL Hemoglobin A1c (4.0-6.0) % Total Protein (6.3-8.2) g/dL Stool Occult Blood Positive H (Negative) 11/05/18 11/05/18 11/05/18 Range/Units 07:15 07:15 07:45 WBC 11.6 H (3.8-10.6) k/uL Neutrophils # 8.1 H (1.3-7.7) k/uL Glucose 142 H (74-99) mg/dL POC Glucose (mg/dL) (75-99) mg/dL Hemoglobin A1c 6.4 H (4.0-6.0) % Total Protein 6.1 L (6.3-8.2) g/dL Stool Occult Blood (Negative) 11/05/18 11/05/18 11/05/18 Range/Units 11:46 15:42 16:38 WBC 11.3 H (3.8-10.6) k/uL Neutrophils # (1.3-7.7) k/uL Glucose (74-99) mg/dL POC Glucose (mg/dL) 115 H 129 H (75-99) mg/dL Hemoglobin A1c (4.0-6.0) % Total Protein (6.3-8.2) g/dL Stool Occult Blood (Negative) CT scan - abdomen: report reviewed (Computed tomography scan of the abdomen with findings of inflammatory changes in the left colon and proximal sigmoid.) Assessment and Plan (1) Colitis Narrative/Plan: Patient presenting with complaints of bright red blood per rectum with some cramping lower abdominal pain and findings on computed tomography scan of inflammation in the left colon and proximal sigmoid. Differential given acuity of symptoms includes infectious etiology, ischemic etiology or less likely inflammatory process. Current Visit: Yes Status: Acute Code(s): K52.9 - NONINFECTIVE GASTROENTERITIS AND COLITIS, UNSPECIFIED SNOMED Code(s): 66226322 (2) GIB (gastrointestinal bleeding) Current Visit: Yes Status: Acute Code(s): K92.2 - GASTROINTESTINAL HE MORRHAGE, UNSPECIFIED SNOMED Code(s): 16175672 Plan: Supportive care Liquid diet started Advance diet to low fiber as tolerated Monitor hemoglobin and transfuse as needed Continue IV antibiotics for 7 days Continue to monitor stool output No plan for endoscopic evaluation at this time, would recommend colonoscopy in 4-6 weeks for further evaluation, however if signs or symptoms of bleeding and pain continue we'll reevaluate at that time Thank you for allowing us to participate in the care of the patient we will continue to follow
[2018-11-05 21:55] LABS: Glucose,Whole Blood 135 mg/dL (75-99)
[2018-11-05 23:17] LABS: Basophils # (A) 0.1 k/uL (0-0.2); Basophils % (A) 1 %; Eosinophils # (A) 0.3 k/uL (0-0.7); Eosinophils % (A) 3 %; HCT 35.9 % (34.0-46.0); HGB 11.7 gm/dL (11.4-16.0); Lymphocytes # (A) 2.8 k/uL (1.0-4.8); Lymphocytes % (A) 27 %; MCH 28.6 pg (25.0-35.0); MCHC 32.7 g/dL (31.0-37.0); MCV 87.5 fL (80.0-100.0); Mean Platelet Volume 8.1; Monocytes # (A) 0.7 k/uL (0-1.0); Monocytes % (A) 6 %; Neutrophils # (A) 6.4 k/uL (1.3-7.7); Neutrophils % (A) 61 %; Platelet Count 297 k/uL (150-450); RDW 14.4 % (11.5-15.5); WBC 10.4 k/uL (3.8-10.6)
[2018-11-06] MEDS: AMPICILLIN-SULBACTAM 3 GM in SODIUM CHLORIDE 0.9% 100 ML IVPB SCH ×5 (00:38→23:10)
[2018-11-06 07:13] LABS: Glucose,Whole Blood 114 mg/dL (75-99)
[2018-11-06] MEDS: INSULIN ASPART (NovoLOG) 100 UNIT/ML VIAL SQ SCH ×4 (07:30→20:59)
[2018-11-06 07:45] LABS: Basophils # (A) 0.1 k/uL (0-0.2); Basophils % (A) 1 %; Eosinophils # (A) 0.3 k/uL (0-0.7); Eosinophils % (A) 3 %; HCT 37.7 % (34.0-46.0); Lymphocytes # (A) 2.8 k/uL (1.0-4.8); Lymphocytes % (A) 28 %; MCH 28.1 pg (25.0-35.0); MCHC 31.9 g/dL (31.0-37.0); MCV 88.1 fL (80.0-100.0); Mean Platelet Volume 8.1; Monocytes # (A) 0.5 k/uL (0-1.0); Monocytes % (A) 6 %; Neutrophils # (A) 5.9 k/uL (1.3-7.7); Neutrophils % (A) 60 %; Platelet Count 300 k/uL (150-450); RBC 4.28 m/uL (3.80-5.40); RDW 14.6 % (11.5-15.5); WBC 9.7 k/uL (3.8-10.6)
[2018-11-06 07:55] LABS: ALT 44 U/L (9-52); AST 31 U/L (14-36); Albumin 3.7 g/dL (3.5-5.0); Alkaline Phosphatase 63 U/L (38-126); Anion Gap 3 mmol/L; Blood Urea Nitrogen 6 mg/dL (7-17); Calcium 9.4 mg/dL (8.4-10.2); Carbon Dioxide 29 mmol/L (22-30); Chloride 107 mmol/L (98-107); Glucose 117 mg/dL (74-99); Potassium 4.2 mmol/L (3.5-5.1); Sodium 139 mmol/L (137-145); Total Bilirubin 0.7 mg/dL (0.2-1.3); Total Protein 6.1 g/dL (6.3-8.2)
[2018-11-06] MEDS: PANTOPRAZOLE 40 MG/10 ML VIAL IVP SCH (08:28)
[2018-11-06] MEDS: ATORVASTATIN 40 MG TAB PO SCH (08:28)
[2018-11-06] MEDS: LISINOPRIL 20 MG TAB PO SCH ×2 (08:28→20:59)
[2018-11-06] MEDS: hydrALAZINE HCL 25 MG TAB PO SCH ×2 (08:28→20:59)
[2018-11-06] MEDS: DILTIAZEM CD 240 MG CAP.ER.24H PO SCH (08:28)
--- NOTE | 2018-11-06 10:21 | P.PN ---
Subjective Progress Note Date: 11/06/18 This is a 48-year-old female patient presented with complaints of GI bleed and abdominal pain. She reports that symptoms started 2 days ago when she was nauseated and vomited and then developed diarrhea where she noticed blood in her stool. Patient is also complaining of lower abdominal pain. Patient does have a past medical history of chest pain, diabetes mellitus, GERD, hyperlipidemia, hypertension, osteoarthritis previous cardiac cath- negative. Abdominal pelvic CT completed showing inflammatory changes left colon and proximal sigmoid colon consistent with colitis. Hemoccult positive for blood. GI service is consulted. Patient currently nothing by mouth. Patient started on Unasyn. Hemoglobin 12.4. At this time patient is still complaining of mild abdominal pain well controlled with IV pain medication. Patient denies any nausea or vomiting. Patient does report stool with bright red blood this a.m. Patient denies clots seen. Will order hemoglobin recheck at noon and 1800. This time patient denies chest pain or shortness breath. Patient denies any nausea vomiting. Patient denies any urinary burning or frequency On 11/06/2018 patient is alert and oriented 3. Patient does state improvement with abdominal pain and diarrhea. Patient did have small formed stool this AM. Patient still having blood in stool. Hemoglobin is stable at 12.0. Patient was evaluated by GI services. Patient is maintained on clear liquid diet and IV antibiotics. At this time patient is complaining of mild abdominal pain. Patient denies nausea vomiting. Patient denies any urinary burning or frequency. Patient denies chest pain or shortness breath Objective - Vital Signs Vital signs: Vital Signs Temp 98.7 F 11/06/18 07:00 Pulse 80 11/06/18 07:00 Resp 15 11/06/18 07:00 BP 131/81 11/06/18 07:00 Pulse Ox 97 11/06/18 07:00 Intake & Output 11/05/18 11/06/18 11/06/18 18:59 06:59 18:59 Intake Total 1890 925 240 Output Total 35 1 Balance 1855 925 239 Intake: Intake, IV Titration 650 Amount Sodium Chloride 0.9% 1, 650 000 ml @ 100 mls/hr IV . Q10H ONE Rx#:[id number] Oral 1240 925 240 Output: Stool 35 1 Other: Voiding Method Toilet # Voids 2 # Bowel Movements 0 - Exam Head normocephalic Neck supple Lungs clear to auscultation bilaterally no wheezing or crackles Heart regular rate and rhythm S1-S2, no rub or gallop Abdomen is soft nontender nondistended positive bowel sounds no hepatosplenomegaly Extremities no edema Neuro alert and orientated to 3 - Labs CBC & Chem 7: 11/06/18 07:24 11/06/18 07:24 Labs: Abnormal Lab Results - Last 24 Hours (Table) 11/05/18 11/05/18 11/05/18 Range/Units 07:45 11:46 15:42 WBC 11.3 H (3.8-10.6) k/uL BUN (7-17) mg/dL Glucose (74-99) mg/dL POC Glucose (mg/dL) 115 H (75-99) mg/dL Hemoglobin A1c 6.4 H (4.0-6.0) % Total Protein (6.3-8.2) g/dL 11/05/18 11/05/18 11/06/18 Range/Units 16:38 21:37 07:02 WBC (3.8-10.6) k/uL BUN (7-17) mg/dL Glucose (74-99) mg/dL POC Glucose (mg/dL) 129 H 135 H 114 H (75-99) mg/dL Hemoglobin A1c (4.0-6.0) % Total Protein (6.3-8.2) g/dL 11/06/18 Range/Units 07:24 WBC (3.8-10.6) k/uL BUN 6 L (7-17) mg/dL Glucose 117 H (74-99) mg/dL POC Glucose (mg/dL) (75-99) mg/dL Hemoglobin A1c (4.0-6.0) % Total Protein 6.1 L (6.3-8.2) g/dL Assessment and Plan Assessment: 1. Abdominal pain with GI bleed and colitis. Inflammatory changes of the left colon and proximal sigmoid colon cystoscopy with colitis. Hemoccult positive. Hemoglobin stable 12.4. GI service consulted. Patient currently nothing by mouth. Patient started on Unasyn for IV antibiotic. Hemoglobin remained stable at 12.0. Per GI services and clear liquid diet continue IV antibiotics. No plans for endoscopic evaluation at this time would recommend colonoscopy in 4-6 weeks for further evaluation. 3. Diabetes mellitus type 2. Sliding scale insulin ordered 4. History of hyperlipidemia 5. History of osteoarthritis DVT prophylaxis SCDs due to GI bleed. GI prophylaxis Protonix I performed an examination of the patient and discussed their management with the Nurse Practitioner. I have reviewed the Nurse Practitioner's notes and agree with the documented findings and plan of care
[2018-11-06 12:27] LABS: Glucose,Whole Blood 122 mg/dL (75-99)
--- NOTE | 2018-11-06 13:48 | P.PN ---
Subjective Progress Note Date: 11/06/18 Principal diagnosis: rectal bleeding abdominal pain improved. Afebrile. Requesting diet advancement. Small BM today with minimal blood.white count 9.7. hemoglobin 12. Objective - Vital Signs Vital signs: Vital Signs Temp 98.7 F 11/06/18 07:00 Pulse 80 11/06/18 07:00 Resp 15 11/06/18 07:00 BP 131/81 11/06/18 07:00 Pulse Ox 97 11/06/18 07:00 Intake & Output 11/05/18 11/06/18 11/06/18 18:59 06:59 18:59 Intake Total 1890 925 240 Output Total 35 1 Balance 1855 925 239 Intake: Intake, IV Titration 650 Amount Sodium Chloride 0.9% 1, 650 000 ml @ 100 mls/hr IV . Q10H ONE Rx#:[id number] Oral 1240 925 240 Output: Stool 35 1 Other: Voiding Method Toilet # Voids 2 # Bowel Movements 0 - Exam General appearance: The patient is alert, oriented, in no acute distress. HET: Head is normocephalic and atraumatic. Pupils are equal and reactive. Oropharynx is clear without lesions. Neck: Supple without lymphadenopathy. Trachea midline. Heart: S1 S2. Regular rate and rhythm. Lungs: No crackles or wheezes are heard. Abdomen: Soft, nmild bilateral lower abdominal tenderness, nondistended with bowel sounds. No peritoneal signs. No palpable organomegaly or masses. Extremities: Normal skin color and turgor. No cyanosis, rash, ulceration, clubbing, or edema. Radial and pedal pulses are 2/4 bilaterally. Neurological: No focal deficits. Strength and sensation are grossly intact. - Labs CBC & Chem 7: 11/06/18 07:24 11/06/18 07:24 Labs: Abnormal Lab Results - Last 24 Hours (Table) 11/05/18 11/05/18 11/05/18 Range/Units 07:45 15:42 16:38 WBC 11.3 H (3.8-10.6) k/uL BUN (7-17) mg/dL Glucose (74-99) mg/dL POC Glucose (mg/dL) 129 H (75-99) mg/dL Hemoglobin A1c 6.4 H (4.0-6.0) % Total Protein (6.3-8.2) g/dL 11/05/18 11/06/18 11/06/18 Range/Units 21:37 07:02 07:24 WBC (3.8-10.6) k/uL BUN 6 L (7-17) mg/dL Glucose 117 H (74-99) mg/dL POC Glucose (mg/dL) 135 H 114 H (75-99) mg/dL Hemoglobin A1c (4.0-6.0) % Total Protein 6.1 L (6.3-8.2) g/dL 11/06/18 Range/Units 12:16 WBC (3.8-10.6) k/uL BUN (7-17) mg/dL Glucose (74-99) mg/dL POC Glucose (mg/dL) 122 H (75-99) mg/dL Hemoglobin A1c (4.0-6.0) % Total Protein (6.3-8.2) g/dL Assessment and Plan (1) Colitis Current Visit: Yes Status: Acute Code(s): K52.9 - NONINFECTIVE GASTROENTERITIS AND COLITIS, UNSPECIFIED SNOMED Code(s): 22679941 (2) GIB (gastrointestinal bleeding) Current Visit: Yes Status: Acute Code(s): K92.2 - GASTROINTESTINAL HEM ORRHAGE, UNSPECIFIED SNOMED Code(s): 24314102 Plan: 1. Low residue diabetic diet. CBC monitoring. Continue antibiotics. Outpatient follow-up advised. Assessment and plan a care discussed with Dr. Wilson
[2018-11-06 17:28] LABS: Glucose,Whole Blood 146 mg/dL (75-99)
[2018-11-06 20:35] LABS: Glucose,Whole Blood 158 mg/dL (75-99)
[2018-11-07] MEDS: AMPICILLIN-SULBACTAM 3 GM in SODIUM CHLORIDE 0.9% 100 ML IVPB SCH ×2 (04:43→13:05)
[2018-11-07 07:19] LABS: Glucose,Whole Blood 155 mg/dL (75-99)
[2018-11-07] MEDS: INSULIN ASPART (NovoLOG) 100 UNIT/ML VIAL SQ SCH ×2 (07:35→12:10)
[2018-11-07] MEDS: LISINOPRIL 20 MG TAB PO SCH (07:36)
[2018-11-07] MEDS: DILTIAZEM CD 240 MG CAP.ER.24H PO SCH (07:36)
[2018-11-07] MEDS: ATORVASTATIN 40 MG TAB PO SCH (07:36)
[2018-11-07] MEDS: hydrALAZINE HCL 25 MG TAB PO SCH (07:36)
[2018-11-07] MEDS ORDERED: PANTOPRAZOLE 40 MG TABLET PO SCH (09:00)
[2018-11-07 09:02] LABS: Basophils # (A) 0.1 k/uL (0-0.2); Basophils % (A) 1 %; Eosinophils # (A) 0.2 k/uL (0-0.7); Eosinophils % (A) 2 %; HCT 35.3 % (34.0-46.0); HGB 11.3 gm/dL (11.4-16.0); Lymphocytes % (A) 23 %; MCH 28.1 pg (25.0-35.0); MCHC 31.9 g/dL (31.0-37.0); MCV 88.1 fL (80.0-100.0); Mean Platelet Volume 8.3; Monocytes # (A) 0.5 k/uL (0-1.0); Monocytes % (A) 5 %; Neutrophils # (A) 5.9 k/uL (1.3-7.7); Neutrophils % (A) 66 %; Platelet Count 290 k/uL (150-450); RBC 4.01 m/uL (3.80-5.40); RDW 14.1 % (11.5-15.5); WBC 8.8 k/uL (3.8-10.6)
[2018-11-07 09:28] LABS: ALT 34 U/L (9-52); AST 25 U/L (14-36); Albumin 3.6 g/dL (3.5-5.0); Alkaline Phosphatase 55 U/L (38-126); Anion Gap 7 mmol/L; Blood Urea Nitrogen 8 mg/dL (7-17); Calcium 9.1 mg/dL (8.4-10.2); Carbon Dioxide 27 mmol/L (22-30); Chloride 106 mmol/L (98-107); Glucose 198 mg/dL (74-99); Sodium 140 mmol/L (137-145); Total Bilirubin 0.5 mg/dL (0.2-1.3); Total Protein 5.9 g/dL (6.3-8.2)
--- NOTE | 2018-11-07 11:03 | P.PN ---
Subjective Progress Note Date: 11/07/18 Principal diagnosis: rectal bleeding abdominal pain continues to improve. Afebrile. Tolerating diet advancement. No bleeding. Objective - Vital Signs Vital signs: Vital Signs Temp 98.3 F 11/07/18 07:00 Pulse 72 11/07/18 07:00 Resp 14 11/07/18 07:00 BP 149/86 11/07/18 07:00 Pulse Ox 96 11/07/18 07:00 Intake & Output 11/06/18 11/07/18 11/07/18 18:59 06:59 18:59 Intake Total 1494 750 236 Output Total 1 Balance 1493 750 236 Weight 115.711 kg Intake: Intake, IV Titration 100 Amount Ampicillin-Sulbactam 3 gm 100 In Sodium Chloride 0.9% 100 ml @ 200 mls/hr IVPB Q6HR [facility] Rx#:[id number] Oral 1494 650 236 Output: Stool 1 Other: Voiding Method Toilet # Voids 2 # Bowel Movements 0 - Exam General appearance: The patient is alert, oriented, in no acute distress. HET: Head is normocephalic and atraumatic. Pupils are equal and reactive. Orop harynx is clear without lesions. Neck: Supple without lymphadenopathy. Trachea midline. Heart: S1 S2. Regular rate and rhythm. Lungs: No crackles or wheezes are heard. Abdomen: Soft, nmild bilateral lower abdominal tenderness, nondistended with bowel sounds. No peritoneal signs. No palpable organomegaly or masses. Extremities: Normal skin color and turgor. No cyanosis, rash, ulceration, club seth, or edema. Radial and pedal pulses are 2/4 bilaterally. Neurological: No focal deficits. Strength and sensation are grossly intact. - Labs CBC & Chem 7: 11/07/18 08:29 11/07/18 08:29 Labs: Abnormal Lab Results - Last 24 Hours (Table) 11/06/18 11/06/18 11/06/18 Range/Units 12:16 17:13 20:21 Hgb (11.4-16.0) gm/dL Glucose (74-99) mg/dL POC Glucose (mg/dL) 122 H 146 H 158 H (75-99) mg/dL Total Protein (6.3-8.2) g/dL 11/07/18 11/07/18 11/07/18 Range/Units 07:07 08:29 08:29 Hgb 11.3 L (11.4-16.0) gm/dL Glucose 198 H (74-99) mg/dL POC Glucose (mg/dL) 155 H (75-99) mg/dL Total Protein 5.9 L (6.3-8.2) g/dL Assessment and Plan (1) Colitis Current Visit: Yes Status: Acute Code(s): K52.9 - NONINFECTIVE GASTROENTERITIS AND COLITIS, UNSPECIFIED SNOMED Code(s): 99041366 (2) GIB (gastrointestinal bleeding) Current Visit: Yes Status: Acute Code(s): K92.2 - GASTROINTESTINAL HEMORRHAGE, UNSPECIFIED SNOMED Code(s): 67216151 Plan: 1. Low residue diabetic diet on discharge. Return to office in 3-4 weeks reevaluation discussion of outpatient endoscopy. We'll follow up on an as- needed basis. Assessment and plan a care discussed with Dr. Wilson
[2018-11-07 12:11] LABS: Glucose,Whole Blood 117 mg/dL (75-99)
--- NOTE | 2018-11-07 14:05 | P.DS ---
Providers Date of admission: 11/06/18 07:02 Expected date of discharge: 11/07/18 Attending physician: Kate Lester Primary care physician: Kate Lester [facility] Course: Discharge diagnosis 1. Abdominal pain with GI bleed and colitis. Inflammatory changes of the left colon and proximal sigmoid colon cystoscopy with colitis. Hemoccult positive. Hemoglobin stable 12.4. GI service consulted. Patient currently nothing by mouth. Patient started on Unasyn for IV antibiotic. Hemoglobin remained stable at 12.0. Per GI services and clear liquid diet continue IV antibiotics. No plans for endoscopic evaluation at this time would recommend colonoscopy in 4-6 weeks for further evaluation. Patient will be DC'd on Levaquin and Flagyl for 7 more days. Patient to follow-up GI services. Repeat CBC ordered for today 3. Diabetes mellitus type 2. Home medications resumed 4. History of hyperlipidemia 5. History of osteoarthritis Hospital course This is a 48-year-old female patient presented with complaints of GI bleed and abdominal pain. She reports that symptoms started 2 days ago when she was nauseated and vomited and then developed diarrhea where she noticed blood in her stool. Patient is also complaining of lower abdominal pain. Patient does have a past medical history of chest pain, diabetes mellitus, GERD, hyperlipidemia, hypertension, osteoarthritis previous cardiac cath- negative. Abdominal pelvic CT completed showing inflammatory changes left colon and proximal sigmoid colon consistent with colitis. Hemoccult positive for blood. GI service is consu lted. Patient currently nothing by mouth. Patient started on Unasyn. Hemoglobin 12.4. At this time patient is still complaining of mild abdominal pain well controlled with IV pain medication. Patient denies any nausea or vomiting. Patient does report stool with bright red blood this a.m. Patient denies clots seen. Will order hemoglobin recheck at noon and 1800. This time patient denies chest pain or shortness breath. Patient denies any nausea vomiting. Patient denies any urinary burning or frequency On 11/06/2018 patient is alert and oriented 3. Patient does state improvement with abdominal pain and diarrhea. Patient did have small formed stool this AM. Patient still having blood in stool. Hemoglobin is stable at 12.0. Patient was evaluated by GI services. Patient is maintained on clear liquid diet and IV antibiotics. At this time patient is complaining of mild abdominal pain. Patient denies nausea vomiting. Patient denies any urinary burning or frequency. Patient denies chest pain or shortness breath On 11/07/2018 patient is alert and oriented 3 patient feels much improved. Patient denies any abdominal pain. Patient reports normal bowel movements. Hemoglobin remained stable at 11.3. Patient will be DC'd on Flagyl and Levaquin for 7 more days. Patient to follow-up outpatient with GI services for colonoscopy in 4-6 weeks. CBC will be ordered for 2 days. At this time patient denies chest pain or shortness breath. Patient denies nausea vomiting or diarrhea. Patient denies any urinary burning or frequency. I performed an examination of the patient and discussed their management with the Nurse Practitioner. I have reviewed the Nurse Practitioner's notes and agree with the documented findings and plan of care Patient Condition at Discharge: Stable Plan - Discharge Summary Discharge Rx Participant: Yes New Discharge Prescriptions: New metroNIDAZOLE [Flagyl] 500 mg PO TID 7 Days #21 tab Levofloxacin [Levaquin] 500 mg PO DAILY 7 Days #7 tab Continue Atorvastatin [Lipitor] 40 mg PO DAILY metFORMIN HCL [Glucophage] 1,000 mg PO AC-BID glipiZIDE [Glucotrol] 10 mg PO AC-BID Diltiazem Cd [Cardizem CD] 240 mg PO DAILY Pantoprazole [Protonix] 40 mg PO DAILY Lisinopril [Prinivil] 20 mg PO BID HYDROcodone/APAP 5-325MG [[place] 5-325] 1 tab PO Q12H PRN PRN Reason: Pain Cyclobenzaprine [Flexeril] 10 mg PO Q8H PRN PRN Reason: Muscle Spasm hydrALAZINE HCL 25 mg PO BID Discontinued Aspirin EC [Ecotrin] 325 mg PO DAILY Naproxen [Naprosyn] 500 mg PO BID Discharge Medication List Atorvastatin [Lipitor] 40 mg PO DAILY 02/03/15 [History] glipiZIDE [Glucotrol] 10 mg PO AC-BID 02/03/15 [History] metFORMIN HCL [Glucophage] 1,000 mg PO AC-BID 02/03/15 [History] Diltiazem Cd [Cardizem CD] 240 mg PO DAILY 10/22/15 [History] Pantoprazole [Protonix] 40 mg PO DAILY 10/22/15 [History] Cyclobenzaprine [Flexeril] 10 mg PO Q8H PRN 05/13/17 [History] HYDROcodone/APAP 5-325MG [[place] 5-325] 1 tab PO Q12H PRN 05/13/17 [History] Lisinopril [Prinivil] 20 mg PO BID 05/13/17 [History] hydrALAZINE HCL 25 mg PO BID 05/13/17 [History] Levofloxacin [Levaquin] 500 mg PO DAILY 7 Days #7 tab 11/07/18 [Rx] metroNIDAZOLE [Flagyl] 500 mg PO TID 7 Days #21 tab 11/07/18 [Rx] Follow up Appointment(s)/Referral(s): [facility],Equipment [NON-STAFF] - Kate Lester MD [Primary Care Provider] - 1-2 days Rene Wilson MD [STAFF PHYSICIAN] - 4 Weeks (4-6 WEEKS FOR OUTPATIENT ENDOSCOPY.) Ambulatory/Diagnostic Orders: Complete Blood Count w/diff [LAB.AMB] Time Frame: 2 Days, Location: [facility] Patient Instructions/Handouts: Gastrointestinal Bleeding (DC), Low Fiber Diet (DC), Ulcerative Colitis (DC) Activity/Diet/Wound Care/Special Instructions: Glucometer - [facility] - will be delivered to bedside before discharge Discharge Disposition: HOME SELF-CARE
[2018-11-07 14:29] VITALS: BP 138/79; PULSE 76; RESP 16; TEMP 98.5
--- NOTE | 2018-11-07 15:07 | CDI ---
Documentation Clarification Form Date: 11/07/2018 2:50:00 PM From: Belem Thompson RN, CCDS Admit Date: 11/06/2018 7:02:00 AM Patient Name: Sanaz Silva Visit Number: [id number] Discharge Date: ATTENTION: The Clinical Documentation Specialists (CDI) and [facility] Coding Staff appreciate your assistance in clarifying documentation. Please respond to the clarification below the line at the bottom and electronically sign. The CDI & [facility] Coding staff will review the response and follow-up if needed. Please note: Queries are made part of the Legal Health Record. If you have any questions, please contact the author of this message via ITS. Dr. Kate Lester Colitis is documented in the Director Of Group Counseling Program Consult and in your Progress Notes. Patient history/risk factors: 48 year old female presents to the ED with abdominal pain and blood in her stool. Medical history of HTN GERD Clinical Indicators: Radiology: CT ABD Inflammatory changes of the left colon and proximal sigmoid colon consistent with colitis Labs: Wbc 18.3, FOB positive, lipase 17, Treatment: Medication: Unasyn ivpb; Consults: Gastroenterology In your professional opinion, can you please further specify the following, if known? * Type * Cause * Other, please specify * Unable to determine (Last Revision: April 2017) Colitis with acute blood loss MTDD
[2018-11-07 16:54] LABS: Glucose,Whole Blood 177 mg/dL (75-99)
== END 2018-11-07 17:45 | disposition home or self-care (01) | DRG 392 ==
LOC: EC 12:59 → 4SSUR 16:59 → OBSVTOIN 11-06 07:02
PROVIDERS: ADMIT Internal Medicine; ATTEND Internal Medicine
DX: K52.9 Noninfective gastroenteritis and colitis, unspecified (principal); E11.9 Type 2 diabetes mellitus without complications; E78.5 Hyperlipidemia, unspecified; F17.200 Nicotine dependence, unspecified, uncomplicated; I10 Essential (primary) hypertension; K21.9 Gastro-esophageal reflux disease without esophagitis; M15.9 Polyosteoarthritis, unspecified; Z79.82 Long term (current) use of aspirin; Z79.84 Long term (current) use of oral hypoglycemic drugs; Z79.899 Other long term (current) drug therapy; Z88.5 Allergy status to narcotic agent; Z90.710 Acquired absence of both cervix and uterus; Z90.79 Acquired absence of other genital organ(s); Z90.722 Acquired absence of ovaries, bilateral; Z90.49 Acquired absence of other specified parts of digestive tract; Z82.49 Family history of ischemic heart disease and other diseases of the circulatory system; Z83.3 Family history of diabetes mellitus
CPT/HCPCS: 36415; 74177; 80053; 82272; 83036; 83690; 83735; 84484; 85025; 85610; 85730; 96361; 96374; 96375; 99285

== ENCOUNTER → 2019-09-16 | Outpatient (CLI) | payer BC ==
--- NOTE | 2019-09-16 08:58 | MM ---
Reason for exam: screening (asymptomatic). Last mammogram was performed 2 years and 8 months ago. History: Patient is postmenopausal. Took hormonal contraceptives for 4 years 6 months. Took estrogen for 2 years beginning at age 29. Physical Findings: A clinical breast exam by your physician is recommended on an annual basis and results should be correlated with mammographic findings. MG 3D Screening Mammo W/Cad Bilateral CC and MLO view(s) were taken. Prior study comparison: January 12, 2017, bilateral MG screening mammo w CAD. December 28, 2015, bilateral MG 3d screening mammo w/cad. There are scattered fibroglandular densities. No suspicious abnormality. No significant changes when compared with prior studies. ASSESSMENT: Negative, BI-RAD 1 RECOMMENDATION: Routine screening mammogram of both breasts in 1 year.
== END | disposition home or self-care (01) ==
LOC: RADMAMWWP 07:14
PROVIDERS: ATTEND Internal Medicine
DX: Z12.31 Encounter for screening mammogram for malignant neoplasm of breast (principal)
CPT/HCPCS: 77063; 77067

== ENCOUNTER → 2020-02-07 | Outpatient (CLI) | payer BC ==
--- NOTE | 2020-02-07 15:41 | XR ---
EXAMINATION TYPE: XR cervical spine w flex/ext DATE OF EXAM: 02/07/2020 TECHNIQUE: Frontal, lateral, oblique, and open mouth view of the cervical spine are obtained. HISTORY: Z98.1 follow-up cervical spine surgery in November COMPARISON: None FINDINGS: There are interbody spacer devices of C5-C6 and C6-C7 which demonstrate no evidence of abn ormal migration beyond the vertebral bodies or significant loosening adjacent to the interbody spacer s. The cervical spine is visualized in its from C1 through the top of C7 level on lateral view. Disha l alignment without evidence of acute fracture or dislocation. There is anterior osteophytic spurring of C5-6 and C6-7. There is minimal grade 1 anterolisthesis of C4 on C5 seen in flexion and neutral v iews, which improves on extension. The pre-vertebral soft tissue appears within normal limits. Neural foramina demonstrate varying degrees of bilateral multilevel bony encroachment due to facet arthropa thy and uncovertebral hypertrophy. The atlantoaxial relationship is within normal limits on the open mouth view. IMPRESSION: 1. Interbody spacer devices at C5-C6 and C6-C7 with no radiographic evidence of hardware failure. 2. Varying degrees of neural foramina encroachment due to facet arthropathy and uncovertebral hypert rophy. 3. Minimal grade 1 anterolisthesis of C4 on C5 in flexion and neutral views, which improves upon ext ension.
== END | disposition home or self-care (01) ==
LOC: RADXRMAIN 11:54
PROVIDERS: ATTEND Neurological Surgery
DX: Z98.1 Arthrodesis status (principal)
CPT/HCPCS: 72052

== ENCOUNTER → 2020-10-06 | Outpatient (CLI) | payer BC ==
--- NOTE | 2020-10-06 16:51 | BD ---
EXAMINATION TYPE: Axial Bone Density DATE OF EXAM: 10/06/2020 COMPARISON: 12/18/2013 CLINICAL HISTORY: Postmenopausal screening Height: 64 IN Weight: 252 LBS FRAX RISK QUESTIONS: Secondary Osteoporosis: 3. Menopause before 45: TOTAL HYST AGE 29 Current Tobacco Use: YES RISK FACTORS HISTORY OF: History of Wrist Fracture: RT WRIST FX AGE 14 AND AGE 33 Diet low in dairy products/other sources of calcium: YES Postmenopausal woman: TOTAL HYST AGE 29 Take estrogen and/or progesterone medications: NOT NOW How long: TOOK FOR 8 YEARS MEDICATIONS: Additional Medications: CYCLOBENZAPRINE, HYDRALAZINE, DILTIAZEM, PANTOPRAZOLE, METFORMIN, HYDROCODONE , GLIPIZIDE, ATORVASTATIN, LISINOPRIL, NAPROXEN EXAM MEASUREMENTS: Bone mineral densitometry was performed using the [employer] System. Bone mineral density as measured about the Lumbar spine is: ----- L1-L4(G/cm2): 1.283 T Score Values are as follows: ----- L2: 0.9 ----- L3: 0.5 ----- L4: 0.1 ----- L1-L4: 0.9 Bone mineral density has: NO CHANGE 0.0% since study of: 12/18/2013 Bone mineral density about the R hip (g/cm2): 0.975 Bone mineral density about the L hip (g/cm2): 0.978 T Score values are as follows: -----R Neck: -0.5 -----L Neck: -0.4 -----R Total: 0.9 -----L Total: 0.6 Bone mineral density has: Decreased -8.2% since study of: 12/18/2013 IMPRESSION: Normal (Values between +1 and -1 indicate normal bone mass). Consider repeating this study in 5 year s or sooner if there is some new clinical indication. NOTE: T-SCORE=SD OF THE YOUNG ADULT MEAN.
--- NOTE | 2020-10-07 14:41 | MM ---
Reason for exam: screening (asymptomatic). Last mammogram was performed 1 year and 1 month ago. History: Patient is postmenopausal. Took hormonal contraceptives for 4 years 6 months. Took estrogen for 2 years beginning at age 29. Physical Findings: A clinical breast exam by your physician is recommended on an annual basis and results should be correlated with mammographic findings. MG 3D Screening Mammo W/Cad Bilateral CC and MLO view(s) were taken. Prior study comparison: September 16, 2019, bilateral MG 3d screening mammo w/cad. January 12, 2017, bilateral MG screening mammo w CAD. There are scattered fibroglandular densities. There is no discrete abnormality. No significant changes when compared with prior studies. ASSESSMENT: Negative, BI-RAD 1 RECOMMENDATION: Routine screening mammogram of both breasts in 1 year.
== END | disposition home or self-care (01) ==
LOC: RADMAMWWP 09:16
PROVIDERS: ATTEND Internal Medicine
DX: Z12.31 Encounter for screening mammogram for malignant neoplasm of breast (principal)
CPT/HCPCS: 77063; 77067; 77080

== ENCOUNTER → 2022-03-16 | Outpatient (CLI) | payer BC ==
--- NOTE | 2022-03-18 11:41 | MM ---
Reason for Exam: Screening (asymptomatic). Last mammogram was performed 1 year(s) and 6 month(s) ago. Patient History: Menarche at age 10. First Full-Term at age 19. Left ovary removed at age 29. Right ovary removed at age 29. Hysterectomy at age 29. Postmenopausal. Estrogen for 2 years from age 29 until age 31. Hormonal Contraceptives for 4 years, 6 months. Risk Values: Shira 5 year model risk: 1.0%. NCI Lifetime model risk: 8.5%. Prior Study Comparison: 01/12/2017 Bilateral Screening Mammogram, [facility]. 09/16/2019 Bilateral Screening Mammogram, [facility]. 10/06/2020 Bilateral Screening Mammogram, [facility]. Tissue Density: There are scattered fibroglandular densities. Findings: Analyzed By CAD. No discrete abnormality. Overall Assessment: Negative, BI-RAD 1 Management: Screening Mammogram of both breasts in 1 year. A clinical breast exam by your physician is recommended on an annual basis and results should be correlated with mammographic findings. Electronically signed and approved by: Saqib Palacio M.D. Radiologist
== END | disposition home or self-care (01) ==
LOC: RADMAMWWP 11:15
PROVIDERS: ATTEND Internal Medicine
DX: Z12.31 Encounter for screening mammogram for malignant neoplasm of breast (principal)
CPT/HCPCS: 77063; 77067

== ENCOUNTER → 2023-10-04 | Outpatient (CLI) | payer BC ==
--- NOTE | 2023-10-08 14:45 | MM ---
Reason for Exam: Screening (asymptomatic). Last mammogram was performed 1 year(s) and 6 month(s) ago. Patient History: Menarche at age 10. First Full-Term at age 19. Left ovary removed at age 29. Right ovary removed at age 29. Hysterectomy at age 29. Postmenopausal. Estrogen for 2 years from age 29 until age 31. Hormonal Contraceptives for 4 years, 6 months. Risk Values: Shira 5 year model risk: 1.1%. NCI Lifetime model risk: 8.2%. Prior Study Comparison: 09/16/2019 Bilateral Screening Mammogram, [facility]. 10/06/2020 Bilateral Screening Mammogram, [facility]. 03/16/2022 Bilateral MG 3D screening mammo w/cad, [facility]. Tissue Density: There are scattered areas of fibroglandular density. Findings: Analyzed By CAD. The pattern is symmetrical. Pattern appears stable No suspicious groups of microcalcifications, spiculated or lobular masses, architectural distortion or other secondary signs of malignancy are mammographically apparent. Overall Assessment: Negative, BI-RAD 1 Management: Screening Mammogram of both breasts in 1 year. A negative mammogram report should not preclude additional follow up of suspicious palpable abnormalities. Patient should continue monthly self breast exam. A clinical breast exam by your physician is recommended on an annual basis and results should be correlated with mammographic findings. Electronically signed and approved by: Sukhwinder Lemos D.O. Radiologis
== END | disposition home or self-care (01) ==
LOC: RADMAMWWP 14:40
PROVIDERS: ATTEND Internal Medicine
DX: Z12.31 Encounter for screening mammogram for malignant neoplasm of breast (principal); Z78.0 Asymptomatic menopausal state
CPT/HCPCS: 77063; 77067